=== PATIENT | female | born 1975 | race Caucasian/White ===

== ENCOUNTER 2023-08-07 23:35 | Emergency (ER) | payer SELFPAY ==
[~2023-08-07] VITALS: Ht 162.5 cm; Wt 59.0 kg
== END 2023-08-08 01:32 | disposition home or self-care (01) ==
LOC: ED 23:35
DX: Z04.3 Encounter for examination and observation following other accident (principal); I10 Essential (primary) hypertension; F17.210 Nicotine dependence, cigarettes, uncomplicated